=== PATIENT | male | born 1960 | race Caucasian/White ===

== ENCOUNTER → 2016-11-15 | Outpatient (CLI) | payer BC ==
[~2016-11-15] MED LIST: GADAVIST IV PRN; MULT-506 PO; OMEG10002 PO; TAMS0.4C38 PO
--- NOTE | 2016-11-15 15:07 | DIAGNOSTIC IMAGING REPORT ---
MRI OF THE BRAIN WITH AND WITHOUT CONTRAST INTERNAL AUDITORY CANAL PROTOCOL CLINICAL HISTORY: Asymmetric left greater than right sensorineural hearing loss. Left-sided tinnitus. COMPARISON STUDY: No previous studies for comparison. TECHNIQUE: Utilizing a 0.7 Renae open magnet, multiplanar, multiecho imaging of the brain was performed pre and postcontrast administration. Thin cut imaging through the internal auditory canals was performed. Injection of 8.5 cc of Gadavist IV was uneventful. FINDINGS: This exam is mildly compromised by motion artifact but is diagnostic. There are no areas of restricted diffusion. No acute intracranial hemorrhage, midline shift or mass effect is present. Brain volume is normal. Ventricular system is unremarkable. Flow-voids for the major intracranial vessels are present. No intracranial mass or pathologic enhancement is present. There is no mass or abnormal enhancement within the internal auditory canals. There is no fluid within the mastoid air cells. Semicircular canals appear intact. No cerebellopontine angle mass is present. There is mild mucosal thickening of the right maxillary sinus. Orbits are unremarkable. Calvarial signal is maintained. IMPRESSION: 1. Unremarkable MRI of the brain and internal auditory canals. 2. Study mildly compromised by artifact although this study is considered diagnostic. Electronically signed by: Renard Gordon M.D. 11/15/2016 3:06 PM Dictated Date/Time: 11/15/2016 3:00 PM
== END | disposition home or self-care (01) ==
LOC: C.OPENMRI 13:19
DX: H91.90 Unspecified hearing loss, unspecified ear (principal)

== ENCOUNTER → 2017-03-06 | Outpatient (CLI) | payer BC ==
[~2017-03-06] MED LIST changes: -GADAVIST IV PRN
--- NOTE | 2017-03-06 11:51 | DIAGNOSTIC IMAGING REPORT ---
RIGHT SHOULDER MIN 2 VIEWS ROUTINE CLINICAL HISTORY: Right shoulder pain. COMPARISON: None FINDINGS: Alignment of the right shoulder is anatomic. There is no fracture or suspicious lesion. There is moderate AC joint arthrosis as well as mild glenohumeral joint arthrosis. Calcific densities which project over the rotator cuff suggest calcific tendinitis. IMPRESSION: 1. Moderate osteoarthritis of the right acromioclavicular joint and mild arthritis of the right glenohumeral joint. 2. Findings suggestive of calcific tendinitis of the right rotator cuff. Electronically signed by: Renard Gordon M.D. 03/06/2017 11:50 AM Dictated Date/Time: 03/06/2017 11:48 AM
== END | disposition home or self-care (01) ==
LOC: C.RAD1850 11:29
PROVIDERS: ATTEND Physician Assistant
DX: M25.511 Pain in right shoulder (principal); M19.011 Primary osteoarthritis, right shoulder

== ENCOUNTER → 2017-10-15 | Outpatient (CLI) | payer OTHER | END | disposition home or self-care (01) | LOC: C.LAB1850 09:29 | PROVIDERS: ATTEND Family Medicine | DX: N41.9 Inflammatory disease of prostate, unspecified (principal) ==

== ENCOUNTER → 2017-12-05 | Outpatient (CLI) | payer OTHER ==
--- NOTE | 2017-12-05 09:02 | DIAGNOSTIC IMAGING REPORT ---
ADDENDUM Varicocele also noted on the left. The presence of a bilateral varicocele is not suspicious but could account for the patient's symptomatology. The report will be called/faxed according to standard departmental protocol. Electronically signed by: Santo Russ M.D. 12/05/2017 9:32 AM Dictated Date/Time: 12/05/2017 9:31 AM ORIGINAL REPORT ABDOMEN FOR HERNIA CLINICAL HISTORY: 57 years-old Male presenting with R10.30 Groin painRight inguinal pain, previous hernia surgery ab. TECHNIQUE: Real-time grayscale ultrasound imaging of the right inguinal canal was performed for a focused evaluation at the site of clinical concern. Color Doppler was also performed. COMPARISON: None. FINDINGS: Prominent right varicocele. Normal-appearing right testis. No evidence of a right inguinal hernia. No fluid collection. IMPRESSION: 1. Right varicocele. The left inguinal canal was not evaluated for varicocele. The patient will be brought back for additional imaging to confirm bilateral varicoceles as a varicocele limited to the right side would be suspicious for venous obstruction of the gonadal vein at or near the level of the IVC. An addendum will be issued once the patient has been brought back for left inguinal canal evaluation. 2. No sonographic evidence of inguinal hernia. Electronically signed by: Santo Russ M.D. 12/05/2017 9:01 AM Dictated Date/Time: 12/05/2017 8:57 AM
== END | disposition home or self-care (01) ==
LOC: C.ULTR 08:18
PROVIDERS: ATTEND Physician Assistant
DX: R10.30 Lower abdominal pain, unspecified (principal); I86.1 Scrotal varices